=== PATIENT | female | born 1960 | race African-American/Black ===

== ENCOUNTER 2017-10-14 11:03 | Emergency (ER) | payer MEDICARE ==
[2017-10-14 11:08] VITALS: BP 127/75; PULSE 92; TEMP 98.2; BMI 30.4
--- NOTE | 2017-10-14 11:40 | PDOC ---
History of Present Illness - General Stated Complaint: SUTURE/STAPLE REMOVAL - History of Present Illness Initial Comments: 10/14/17 11:37 57-year-old female presents for evaluation of suture removal right second finger.Since suture placement she has developed a localized infection to the wound and was placed on Keflex by her primary care physician. Past History - Past Medical History Allergies/Adverse Reactions: Allergies Allergy/AdvReac Type Severity Reaction Status Date / Time No Known Allergies Allergy Verified 10/14/17 11:08 COPD: No Diabetes: Yes HTN: Yes Thyroid Disease: Yes - Suicide/Smoking/Psychosocial Hx Smoking History: Never smoked Hx Alcohol Use: No Drug/Substance Use Hx: No Substance Use Type: None Review of Systems - Review of Systems All Other Systems: Reviewed and Negative *Physical Exam - Vital Signs Last Vital Signs Temp Pulse Resp BP Pulse Ox 98.2 F 92 H 16 127/75 99 10/14/17 11:06 10/14/17 11:06 10/14/17 11:06 10/14/17 11:06 10/14/17 11:06 - Physical Exam Comments: The skin over the wound on the right second finger on the volar aspect of the PIPJ is clean and dry there's some maceration around the wound edges. There is mild fluctuance without induration erythema or warmth. 10/14/17 11:38 Medical Decision Making - Medical Decision Making Sutures were removed without complication aseptically, a small edwin was made in the skin there is no purulence expressed. A dry sterile dressing was placed. 10/14/17 11:38 *DC/Admit/Observation/Transfer Diagnosis at time of Disposition: Visit for suture removal - Discharge Dispostion Disposition: HOME Condition at time of disposition: Stable Decision to Admit order: No - Referrals Referrals: Ranjeet Stephen MD [Primary Care Provider] - Filippo Mcallister MD [Staff Physician] - - Patient Instructions Printed Discharge Instructions: DI for Suture Removal Additional Instructions: Return to the emergency room should symptoms worsen or go unresolved. Please follow-up with hand surgery in 2-3 days for further evaluation and treatment options. Continue the Keflex as directed. Keep the dressing on for 1-2 days after that time, you may remove the dressing and wash her hand with soap and water and leave it open to air. Again return to the emergency room should he develop any drainage redness swelling or increasing pain to the area. Otherwise follow-up with hand surgery in 2-3 days. - Post Discharge Activity
== END 2017-10-14 11:42 | disposition home or self-care (01) ==
LOC: JER 11:03 → JERFT 11:03
DX: Z48.817 Encounter for surgical aftercare following surgery on the skin and subcutaneous tissue (principal); Z48.02 Encounter for removal of sutures
CPT/HCPCS: 99281-25

== ENCOUNTER 2017-10-24 14:23 | Emergency (ER) | payer MEDICARE ==
[2017-10-24 14:36] VITALS: BP 127/71; PULSE 84; TEMP 98
--- NOTE | 2017-10-24 14:54 | PDOC ---
History of Present Illness - General Chief Complaint: Redness To Affected Area Stated Complaint: INFECTION - History of Present Illness Initial Comments: 57-year-old female with a past medical history significant for diabetes and hypertension presents for evaluation of right second finger pain. She had a laceration sutures were removed and she was placed on Keflex for potential wound infection. She reports today increasing pain in the area. She points to the volar aspect of her PIPJ of the right second finger. She has no other associated symptoms no systemic symptoms. 10/24/17 14:49 Past History - Past Medical History Allergies/Adverse Reactions: Allergies Allergy/AdvReac Type Severity Reaction Status Date / Time No Known Allergies Allergy Verified 10/24/17 14:36 Home Medications: Ambulatory Orders Cephalexin [Keflex] 500 mg PO QID #40 capsule 10/24/17 Cyclobenzaprine HCl 5 mg PO DAILY 10/24/17 Escitalopram Oxalate [Lexapro -] 20 mg PO DAILY 10/24/17 Exenatide Microspheres [Bydureon] 2 mg SQ Q7D 10/24/17 Insulin Degludec [Tresiba Flextouch U-200] 200 unit SQ ASDIR 10/24/17 Levothyroxine [Synthroid -] 75 mcg PO DAILY 10/24/17 Lisinopril/Hydrochlorothiazide [Lisinopril-Hctz 20-12.5 mg Tab] 1 each PO ASDIR 10/24/17 Pregabalin [Lyrica -] 100 mg PO TID 10/24/17 Sulfamethoxazole/Trimethoprim [Bactrim Ds -] 1 tab PO BID #14 tablet 10/24/17 COPD: No Diabetes: Yes HTN: Yes Thyroid Disease: Yes - Suicide/Smoking/Psychosocial Hx Smoking History: Never smoked Have you smoked in the past 12 months: No Information on smoking cessation initiated: No Hx Alcohol Use: No Drug/Substance Use Hx: No Substance Use Type: None Review of Systems - Review of Systems Musculoskeletal: Yes: See HPI, Joint Pain All Other Systems: Reviewed and Negative *Physical Exam - Vital Signs Last Vital Signs Temp Pulse Resp BP Pulse Ox 98.0 F 84 16 127/71 100 10/24/17 14:34 10/24/17 14:34 10/24/17 14:34 10/24/17 14:34 10/24/17 14:34 - Physical Exam Comments: Right second finger skin color and temperature are normal. There is a well- healed laceration over the volar aspect of the PIPJ horizontally oriented. There is no pain with passive stretch, sausagelike edema, or exquisite tenderness on the flexor surface. There is no appreciable fluctuance only mild erythema. There are no gross sensorimotor deficits. 10/24/17 14:50 Medical Decision Making - Medical Decision Making 10/24/17 14:51 I will treat this as a localized cellulitis. This is not a flexor tenosynovium Vitas. I will have her follow-up with hand surgery in 2-3 days. *DC/Admit/Observation/Transfer Diagnosis at time of Disposition: Cellulitis of finger of right hand - Discharge Dispostion Disposition: HOME Condition at time of disposition: Stable Decision to Admit order: No - Referrals Referrals: Ranjeet Stephen MD [Primary Care Provider] - Filippo Mcallister MD [Staff Physician] - - Patient Instructions Printed Discharge Instructions: DI for Cellulitis -- Adult, Cellulitis Additional Instructions: Use warm soaks on your finger 5-6 times a day for 5-10 minutes at a time. Take the antibiotics as directed. Return to the emergency room should symptoms worsen or go unresolved. Its important to follow-up with Dr. Mcallister in his office in 2-3 days for further evaluation and treatment options. Fifth finger gets worse prior follow-up please come back to the emergency room. - Post Discharge Activity
== END 2017-10-24 14:57 | disposition home or self-care (01) ==
LOC: JERFT 14:23
PROC: 3E0234Z Introduction of Serum, Toxoid and Vaccine into Muscle, Percutaneous Approach (ICD-10-PCS; principal; 2017-10-24)
DX: L03.011 Cellulitis of right finger (principal); T81.4XXA Infection following a procedure, initial encounter
CPT/HCPCS: 90471; 99281-25